=== PATIENT | male | born 1955 | race Caucasian/White ===

== ENCOUNTER 2016-08-01 14:40 | Emergency (ER) | payer SELFPAY ==
[2016-08-01 13:25] LABS: ASCORBIC ACID (UR NOT ORDER) NEG (NEG); BILIRUBIN, URINE NEGATIVE (NEG); ER URINALYSIS TAT 0 Hrs 09 Mins; KETONE, URINE 20 MG/DL (NEG); LEUKOCYTE ESTERASE(NOT OR NEG (NEG); NITRITE (URINE) NEG (NEG); WBC (NOT ORDERED) (RFLEX) 1 (0-5)
[2016-08-01 13:33] LABS: BASOPHILS 0.4 %; BASOPHILS ABSOLUTE 0.03 10/3/uL (0.0-0.16); EOSINOPHILS 1.3 %; EOSINOPHILS ABSOLUTE 0.11 10/3/uL (0.0-0.53); ER CBC TAT 0 Hrs 03 Mins; HEMATOCRIT 46.8 % (40.0-51.0); HEMOGLOBIN 16.3 g/dL (13.6-17.8); IMMATURE GRANULOCYTES 0.2 %; IMMATURE GRANULOCYTES ABSOLUTE 0.02 10/3/uL (0.0-0.11); LYMPHOCYTES 19.2 %; LYMPHOCYTES ABSOLUTE 1.59 10/3/uL (0.67-4.30); MANUAL DIFF NO %; MEAN CORPUS HGB CONC 34.8 g/dL (32.0-36.0); MEAN CORPUSCULAR HEMOGLOB 31.2 pg (26.0-34.0); MEAN CORPUSCULAR VOLUME 89.5 fL (80-100); MEAN PLATELET VOLUME 9.8 fL (9.2-13.0); MONOCYTES 7.1 %; MONOCYTES ABSOLUTE 0.59 10/3/uL (0.21-1.20); NEUTROPHILS 71.8 %; NEUTROPHILS ABSOLUTE 5.92 10/3/uL (2.02-8.40); PLATELET COUNT 277 10/3/uL (150-400); RED CELL COUNT 5.23 10/6/uL (4.7-6.1); WHITE BLOOD CELLS 8.3 10/3/uL (4.5-10.5)
[2016-08-01 13:51] LABS: A/G RATIO 1.1 (0.7-1.9); ALKALINE PHOSPHATASE 108 U/L (45-117); BUN (BLOOD UREA NITROGEN) 19 MG/DL (6-23); CALCIUM, SERUM 9.6 MG/DL (8.5-10.4); CHLORIDE, SERUM 102 MMOL/L (96-112); CO2 (CARBON DIOXIDE) 28 MMOL/L (24-34); CREATININE 0.79 MG/DL (0.70-1.30); GFR AFRICAN AMERICAN 114 ML/MIN (>=60); GFR NON AFRICAN AMERICAN 98 ML/MIN (>=60); GLOBULIN 3.7 G/DL (2.5-4.1); GLUCOSE, SERUM 192 MG/DL (60-99); SGOT(AST) 30 U/L (5-40); SGPT(ALT) 38 U/L (5-65); SODIUM, SERUM 134 MMOL/L (135-148); TOTAL BILIRUBIN 1.6 MG/DL (0-1.2); TOTAL PROTEIN 7.7 G/DL (6.0-8.5); TROPONIN I <0.02 NG/ML (<0.05)
== END 2016-08-01 15:14 | disposition home or self-care (01) ==
LOC: ER 14:40
PROVIDERS: Nurse Practitioner Acute Care
DX: M54.9 Dorsalgia, unspecified (principal); R51 Headache; R42 Dizziness and giddiness
CPT/HCPCS: 70450; 80053; 81001; 83690; 84484; 85025; 93005; 99284